=== PATIENT | male | born 1940 | race Caucasian/White ===

== ENCOUNTER 2018-01-24 18:31 | Inpatient (IN) | payer OTHER ==
[~2018-01-24] VITALS: Ht 175.3 cm; Wt 83.5 kg
[2018-01-24] MEDS ORDERED: CARVEDILOL12.5 MG (18:43)
[2018-01-24] MEDS ORDERED: ATORVASTATIN CA40 MG (18:43)
[2018-01-24] MEDS ORDERED: GLIPIZIDE10 MG (18:44)
[2018-01-24] MEDS ORDERED: PLAVIX75 MG (18:44)
[2018-01-24] MEDS ORDERED: ZESTRIL10 MG (18:44)
== END 2018-01-29 18:05 | disposition home or self-care (01) | DRG 727 ==
LOC: ER 18:31 → MEDJ 23:31 → MEDI 23:31 → MEDJ 01-25 02:54
PROC: BW25Y0Z Computerized Tomography (CT Scan) of Chest, Abdomen and Pelvis using Other Contrast, Unenhanced and Enhanced (ICD-10-PCS; principal; 2018-01-24)
PROC: 4A12X4Z Monitoring of Cardiac Electrical Activity, External Approach (ICD-10-PCS; 2018-01-25)
DX: N41.0 Acute prostatitis (principal); A41.9 Sepsis, unspecified organism; N17.8 Other acute kidney failure; N39.0 Urinary tract infection, site not specified; E11.22 Type 2 diabetes mellitus with diabetic chronic kidney disease; I12.9 Hypertensive chronic kidney disease with stage 1 through stage 4 chronic kidney disease, or unspecified chronic kidney disease; N18.2 Chronic kidney disease, stage 2 (mild); R30.0 Dysuria

== ENCOUNTER 2018-03-20 13:53 | Emergency (ER) | payer OTHER ==
[~2018-03-20] VITALS: Ht 175.3 cm; Wt 81.6 kg
[~2018-03-20 13:53] MED LIST: ATORVASTATIN CA40 MG; CARVEDILOL12.5 MG; GLIPIZIDE10 MG; PLAVIX75 MG; ZESTRIL10 MG
[2018-03-20] MEDS ORDERED: MACROBID 100 M100 MG PO (16:36)
== END 2018-03-20 21:27 | disposition home or self-care (01) ==
LOC: ER 13:53
DX: N39.0 Urinary tract infection, site not specified (principal); B95.4 Other streptococcus as the cause of diseases classified elsewhere; N18.9 Chronic kidney disease, unspecified

== ENCOUNTER 2018-05-12 18:08 | Inpatient (IN) | payer OTHER ==
[~2018-05-12] VITALS: Ht 182.9 cm; Wt 86.2 kg
[~2018-05-12 18:08] MED LIST changes: +MACROBID 100 M100 MG PO
== END 2018-05-16 09:59 | disposition home health service (06) | DRG 690 ==
LOC: ER 18:08 → SEC-K 20:58 → MEDI 20:58
PROC: BW21ZZZ Computerized Tomography (CT Scan) of Abdomen and Pelvis (ICD-10-PCS; principal; 2018-05-13)
PROC: BV49ZZZ Ultrasonography of Prostate and Seminal Vesicles (ICD-10-PCS; 2018-05-14)
DX: N39.0 Urinary tract infection, site not specified (principal); N17.8 Other acute kidney failure; N41.0 Acute prostatitis; B96.29 Other Escherichia coli [E. coli] as the cause of diseases classified elsewhere; R30.0 Dysuria; E11.9 Type 2 diabetes mellitus without complications; I12.9 Hypertensive chronic kidney disease with stage 1 through stage 4 chronic kidney disease, or unspecified chronic kidney disease; N18.1 Chronic kidney disease, stage 1; E78.49 Other hyperlipidemia; K57.30 Diverticulosis of large intestine without perforation or abscess without bleeding; Z86.73 Personal history of transient ischemic attack (TIA), and cerebral infarction without residual deficits; Z16.12 Extended spectrum beta lactamase (ESBL) resistance